=== PATIENT | female | born 1995 | race African-American/Black ===

== ENCOUNTER 2023-07-24 10:43 | Outpatient (CLI) | payer OTHER ==
[2023-07-24 18:20] LABS: THYROID STIMULATING HORMONE 1.3 uIU/mL (0.34-5.60)
[2023-07-24 18:25] LABS: PROLACTIN 4.53 ng/mL
[2023-07-25 07:09] LABS: PROGESTERONE 0.5 ng/mL (.)
[2023-07-25 20:08] LABS: FREE TESTOSTERONE(DIRECT) 1.9 pg/mL (0.0-4.2); SEX HORM BINDING GLOB SERUM 47.6 nmol/L (24.6-122.0)
== END 2023-07-24 10:44 | disposition home or self-care (01) ==
LOC: LAB.N 10:43
PROVIDERS: ATTEND Nurse Practitioner
DX: N92.6 Irregular menstruation, unspecified (principal); O92.6 Galactorrhea
CPT/HCPCS: 36415; 82166; 82627; 82670; 83001; 83002; 83498; 84144; 84146; 84270; 84402; 84403; 84443

== ENCOUNTER 2023-07-28 13:25 | Outpatient (CLI) | payer OTHER ==
--- NOTE | 2023-07-28 19:48 | Ultrasound Report ---
PROCEDURE: Pelvic w/Transvaginal INDICATIONS: IRREGULAR MENSTRATION TECHNIQUE: Real-time scanning was performed of the pelvic organs, with image documentation. Additional endovagi nal scanning was necessary due to incomplete visualization of the adnexal and endometrial structures by transabdominal scanning. COMPARISON: None. FINDINGS: Uterus: Uterus is anteverted and normal in size at 8.0 x 4.3 x 4.7 cm. The myometrium is heterogene ous. The endometrium measures 5 mm in combined thickness. Within cysts are present. Ovaries: The right ovary measures 3.0 x 2.6 x 2.1 cm, with a calculated ovarian volume of 8.5 cc. T he left ovary measures 2.3 x 1.6 x 1.6 cm, with a calculated ovarian volume of 3.1 cc. The ovaries h ave a normal sonographic appearance. Less than 12 follicles can be seen in each ovary. No adnexal m asses are seen. No cystic lesions measuring greater than 3 cm. Other: No pathologic free abdominal or pelvic fluid. IMPRESSION: Heterogeneous uterus is nonspecific but can be seen in the setting of adenomyosis. Reviewed by: Dimitris Mabry MD on 07/28/2023 7:46 PM PST Approved by: Dimitris Mabry MD on 07/28/2023 7:46 PM PST Station ID: [id number]
--- NOTE | 2023-07-31 10:12 | Ultrasound Report ---
LIMITED ULTRASOUND OF RIGHT BREAST: 07/28/2023 CLINICAL: Nipple discharge, right breast, not bloody. No prior exams were available for comparison. Color flow ultrasound of the right breast retroareolar was performed. Ravi scale images of the real- time examination were reviewed. No significant abnormalities were seen sonographically in the right breast. IMPRESSION: NEGATIVE There is no sonographic evidence of malignancy. There is no abnormality seen in the right breast to correspond with the area of clinical concern and non-bloody discharge from the nipple in the sub-areolar depth which likely represent physiological di scharge, however, recommend clinical follow up for persistent or worsening symptoms, or development of any clinically suspicious findings. Recommend initiating routine screening mammograms at age 39. Findings and recommendations were conveyed to the patient during today's evaluation. This exam was interpreted at Station ID: [id number]. Electronically Signed By: Nghia Hammer M.D. aty/:07/28/2023 15:12:11 Ultrasound BI-RADS: 1 Negative BI-RADS CATEGORY: (1) - 1 RECOMMENDATION: (ADDMAM) - Recommend additional mammographic views. recall n/a LATERALITY: (B)
== END 2023-07-28 13:26 | disposition home or self-care (01) ==
LOC: DI 13:25
PROVIDERS: ATTEND Nurse Practitioner
DX: O92.6 Galactorrhea (principal); N92.6 Irregular menstruation, unspecified; Z71.89 Other specified counseling